=== PATIENT | female | born 1960 | race African-American/Black ===

== ENCOUNTER 2022-10-19 16:33 | Emergency (ER) | payer OTHER, SELFPAY ==
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
--- NOTE | ~2022-10-19 | CT_ITS ---
EXAMINATION: CT thoracic lumbar wo con DATE: 10/19/2022 20:06 INDICATION: Midline back pain TECHNIQUE: Computed tomography (CT) of the thoracic and lumbar spine was performed without intravenou s contrast. Automated exposure control and iterative reconstruction technique were employed. The dose -length product was 1636.40 mGy-cm. COMPARISON: None FINDINGS: Thoracic spine: A degree upper thoracic levocurvature. Sagittal alignment is normal. Chronic T7 compression fracture with 20% anterior vertebral body height loss. Remaining thoracic vertebral body heights are normal. N o acute fracture. Moderate disc height loss with mild degenerative endplate changes at T3-T4 through T7-T8. Mild disc height loss at and T2-T3 and T8-T9 through T10-T11. Moderate facet osteoarthritis co ntributing to mild neural foraminal stenosis on the right at T4-T5. Additional minimal to mild facet osteoarthritis at a few additional levels on the left and right. No central canal stenosis. Visualize d paravertebral soft tissues are unremarkable. Visualized portion of the lungs are clear. Lumbar spine: 3 mm anterolisthesis L4 on L5. Vertebral body heights are normal. Mild disc height loss at L4-L5. Par avertebral soft tissues are unremarkable. Normal appendix. Moderate bilateral sacroiliitis with erosi ons at the inferior aspect of the bilateral sacroiliac joints. The following disc levels are specific ally discussed: T12-L1: The disc does not extend beyond the endplate margin. There is mild right and moderate left fa cet joint osteoarthritis. There is no neural foraminal stenosis. There is no central canal stenosis. L1-L2: Disc is mildly bulging. There is mild bilateral facet joint osteoarthritis. There is mild bila teral neural foraminal stenosis. There is mild central canal stenosis. L2-L3: Disc is bulging. There is moderate left and mild right facet joint osteoarthritis. There is mi ld bilateral neural foraminal stenosis. There is mild central canal stenosis. L3-L4: Disc is bulging. There is severe bilateral facet joint osteoarthritis. There is moderate right and mild left neural foraminal stenosis. There is mild central canal stenosis. L4-L5: Disc is bulging. There is severe bilateral facet joint osteoarthritis. There is mild to modera te bilateral neural foraminal stenosis. There is mild central canal stenosis. L5-S1: Disc is bulging. There is moderate bilateral facet joint osteoarthritis. There is mild to mode rate bilateral neural foraminal stenosis. There is no central canal stenosis. IMPRESSION: 1. Moderate thoracic and mild lumbar spondylosis. 2. Chronic appearing fracture mild T7 compression fracture. No acute osseous abnormality. 3. Moderate bilateral sacroiliitis. Reviewed, dictated and finalized at location A. IMPRESSION: 1. Moderate thoracic and mild lumbar spondylosis. 2. Chronic appearing fracture mild T7 compression fracture. No acute osseous ab normality. 3. Moderate bilateral sacroiliitis.
[2022-10-19 17:13] VITALS: BP 173/133; PULSE 103; RESP 16; TEMP 36.7; O2SAT 98
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
== END 2022-10-19 22:15 | disposition home or self-care (01) ==
PROVIDERS: Emergency Provider Physician Assistant
DX: S39.012A Strain of muscle, fascia and tendon of lower back, initial encounter (principal); S89.91XA Unspecified injury of right lower leg, initial encounter; M48.54XA Collapsed vertebra, not elsewhere classified, thoracic region, initial encounter for fracture; M46.1 Sacroiliitis, not elsewhere classified; V44.0XXA Car driver injured in collision with heavy transport vehicle or bus in nontraffic accident, initial encounter
CPT/HCPCS: 72128; 72131; 73560; 99284